=== PATIENT | male | born 1980 | race Caucasian/White ===

== ENCOUNTER 2023-07-05 07:37 | Emergency (ER) | payer MEDICAID ==
[~2023-07-05] VITALS: Ht 177.8 cm; Wt 91.0 kg
[2023-07-05 07:41] VITALS: BP 120/86; PULSE 79; RESP 16; TEMP 98
[2023-07-05] MEDS ORDERED: one a day PO (07:42)
[2023-07-05] MEDS ORDERED: ACETAMINOPHEN 500 MG TABLET PO ONE (08:00)
[2023-07-05] MEDS ORDERED: IBUP-1492 PO (09:01)
[2023-07-05] MEDS ORDERED: ACET-3385 PO (09:01)
== END 2023-07-05 09:07 | disposition home or self-care (01) ==
LOC: EMS 07:38
DX: S00.93XA Contusion of unspecified part of head, initial encounter (principal); V89.2XXA Person injured in unspecified motor-vehicle accident, traffic, initial encounter; Y93.89 Activity, other specified; Y92.89 Other specified places as the place of occurrence of the external cause; Y99.8 Other external cause status
CPT/HCPCS: 70450; 73503; 99284